=== PATIENT | female | born 1990 | race Caucasian/White ===

== ENCOUNTER 2017-12-28 15:43 | Emergency (ER) | payer OTHER ==
[2017-12-28] MEDS: SOD CHLORIDE 0.9% 1,000 ML IV (16:53)
== END 2017-12-28 19:06 | disposition home or self-care (01) ==
LOC: E/R 15:43
DX: O99.351 Diseases of the nervous system complicating pregnancy, first trimester (principal); G51.0 Bell's palsy; R51 Headache; Z3A.15 15 weeks gestation of pregnancy
CPT/HCPCS: 70544; 70551; 99285-25

== ENCOUNTER 2018-01-10 18:35 | Emergency (ER) | payer OTHER ==
[2018-01-10 21:10] LABS: ADD UMIC NO; UR AMORPHOUS CRYSTAL FEW /HPF (NONE SEEN); UR ASCORBIC ACID 20 mg/dL (NEGATIVE); UR BACTERIA FEW /HPF (NONE SEEN); UR BILIRUBIN (Dip) NEGATIVE (NEGATIVE); UR BLOOD (Dip) NEGATIVE (NEGATIVE); UR CLARITY SLIGHTLY CLOUDY (CLEAR); UR COLOR YELLOW (YELLOW); UR GLUCOSE (Dip) NEGATIVE (NEGATIVE); UR KETONES (Dip) NEGATIVE (NEGATIVE); UR LEUKOCYTE ESTERASE (Dip) NEGATIVE Leu/ul (NEGATIVE); UR NITRITE (Dip) NEGATIVE (NEGATIVE); UR RBC 1 /HPF (0-5); UR SPECIFIC GRAVITY (Dip) 1.018 (1.003-1.030); UR SQUAMOUS EPITHELIAL CELL MODERATE /HPF (FEW); UR TOTAL PROTEIN (Dip) NEGATIVE (NEGATIVE); UR UROBILINOGEN (Dip) NEGATIVE (NEGATIVE); UR WBC 3 /HPF (0-5)
[2018-01-10 21:18] LABS: ADD MAN DIFF? NO
[2018-01-10 21:20] LABS: WHITE BLOOD COUNT 10.8 10^3/ul (4.8-10.8)
[2018-01-10 21:20] LABS: BASOPHILS % 0.2 % (0.0-2.0); EOSINOPHILS # 0.1 10^3/ul (0.0-0.5); EOSINOPHILS % 1.3 % (0.0-7.0); HEMATOCRIT 35.8 % (37.0-47.0); HEMOGLOBIN 11.9 g/dl (12.0-16.0); LYMPHOCYTES # 2.2 10^3/ul (0.8-2.9); LYMPHOCYTES % 19.9 % (15.0-51.0); MEAN CORPUSCULAR HEMOGLOBIN 31.6 pg (29.0-33.0); MEAN CORPUSCULAR HGB CONC 33.2 g/dl (32.0-37.0); MEAN PLATELET VOLUME 9.8 fl (7.4-10.4); MONOCYTE # 0.6 10^3/ul (0.3-0.9); MONOCYTES % 5.7 % (0.0-11.0); NEUTROPHIL # 7.8 10^3/ul (1.6-7.5); NEUTROPHILS % 72.3 % (39.0-77.0); PLATELET COUNT 209 10^3/UL (140-415); RED BLOOD COUNT 3.77 10^6/ul (4.20-5.40); RED CELL DISTRIBUTION WIDTH 14.1 % (11.5-14.5)
== END 2018-01-10 22:38 | disposition home or self-care (01) ==
LOC: FTE 18:35
DX: O26.892 Other specified pregnancy related conditions, second trimester (principal); R10.2 Pelvic and perineal pain; Z3A.17 17 weeks gestation of pregnancy
CPT/HCPCS: 36415; 76805; 81001; 81003; 84702; 85025; 86900; 86901; 99284-25

== ENCOUNTER 2018-06-10 08:54 | Inpatient (IN) | payer BC ==
[2018-06-10 10:28] LABS: ADD MAN DIFF? NO
[2018-06-10 10:30] LABS: BASOPHILS % 0.3 % (0.0-2.0); EOSINOPHILS % 0.3 % (0.0-7.0); HEMATOCRIT 40.2 % (37.0-47.0); HEMOGLOBIN 13.3 g/dl (12.0-16.0); LYMPHOCYTES # 1.3 10^3/ul (0.8-2.9); LYMPHOCYTES % 18.8 % (15.0-51.0); MEAN CORPUSCULAR HEMOGLOBIN 31.7 pg (29.0-33.0); MEAN CORPUSCULAR HGB CONC 33.1 g/dl (32.0-37.0); MEAN CORPUSCULAR VOLUME 95.7 fl (82.0-101.0); MEAN PLATELET VOLUME 11.6 fl (7.4-10.4); MONOCYTE # 0.4 10^3/ul (0.3-0.9); NEUTROPHIL # 4.9 10^3/ul (1.6-7.5); NEUTROPHILS % 74.1 % (39.0-77.0); PLATELET COUNT 161 10^3/UL (140-415); RED CELL DISTRIBUTION WIDTH 13.2 % (11.5-14.5)
[2018-06-10 10:30] LABS: WHITE BLOOD COUNT 6.6 10^3/ul (4.8-10.8)
[2018-06-10 10:51] LABS: ALANINE AMINOTRANSFERASE 179 IU/L (13-69); ALBUMIN 3.8 g/dl (3.3-4.9); ALBUMIN/GLOBULIN RATIO 1.31; ALKALINE PHOSPHATASE 257 IU/L (42-121); ANION GAP 12 (5-13); ASPARTATE AMINO TRANSFERASE 162 IU/L (15-46); BILIRUBIN,INDIRECT 0.2 mg/dl (0-1.1); BILIRUBIN,TOTAL 0.2 mg/dl (0.2-1.3); BLOOD UREA NITROGEN 17 mg/dl (7-20); CALCIUM 9.1 mg/dl (8.4-10.2); CARBON DIOXIDE 18 mmol/L (21-31); CHLORIDE 109 mmol/L (97-110); CREATININE 0.88 mg/dl (0.44-1.00); Estimated GFR > 60 mL/min (>60); GLUCOSE 68 mg/dl (70-220); POTASSIUM 4.2 mmol/L (3.5-5.1); SODIUM 139 mmol/L (135-144); TOTAL PROTEIN 6.7 g/dl (6.1-8.1)
[2018-06-10 10:57] LABS: INR 0.91; PROTIME 12.3 Sec (11.9-14.9)
[2018-06-10 11:49] LABS: HEPATITIS B SURFACE ANTIGEN NEGATIVE (NEGATIVE)
[2018-06-10] MEDS ORDERED: OXYTOCIN 30 UNITS/LR 500 ML IV (13:30)
[2018-06-10] MEDS ORDERED: CARBOPROST 250 MCG INJ IM (13:30)
[2018-06-10] MEDS ORDERED: MISOPROSTOL 200 MCG TAB PR (13:30)
[2018-06-10 15:17] LABS: RAPID PLASMA REAGIN NONREACTIVE (NR)
[2018-06-10] MEDS: LACTATED RINGER'S 1,000 ML IV ×2 (15:55→18:52)
[2018-06-10] MEDS: CEFAZOLIN 2 GM/50 ML (PMX) 50 ML IVPB (22:48)
[2018-06-10] MEDS ORDERED: PHENYLephrine (100 MCG/ML) 5ML SYG ×2 (22:59→23:55)
[2018-06-10] MEDS ORDERED: ONDANSETRON 4 MG INJ (22:59)
[2018-06-10] MEDS ORDERED: morphine SULFATE/PF (10 MG/10 ML) INJ (23:00)
[2018-06-10] MEDS ORDERED: OXYTOCIN 10 UNIT INJ ×2 (23:00→23:44)
[2018-06-10] MEDS ORDERED: PHENYLephrine 10 MG INJ (23:53)
[2018-06-11] MEDS ORDERED: morphine 2 MG INJ IV (01:00)
[2018-06-11] MEDS ORDERED: ONDANSETRON 4 MG INJ IV (01:00)
[2018-06-11] MEDS ORDERED: NALOXONE (0.4 MG/ML) INJ IV (01:00)
[2018-06-11] MEDS: OXYTOCIN 30 UNITS/LR 500 ML IV ×3 (01:43→02:57)
[2018-06-11] MEDS: METHYLERGONOVINE 0.2 MG INJ IM (01:48)
[2018-06-11] MEDS: DIPHENHYDRAMINE 50 MG INJ IV ×2 (02:06→12:50)
[2018-06-11] MEDS ORDERED: DEXTROSE 5%-LR 1,000 ML IV ×2 (02:57→02:58)
[2018-06-11] MEDS ORDERED: OXYTOCIN 30 UNITS/LR 500 ML IV ×3 (02:58→03:00)
[2018-06-11] MEDS ORDERED: CARBOPROST 250 MCG INJ IM ×3 (03:00→06:00)
[2018-06-11] MEDS ORDERED: METHYLERGONOVINE 0.2 MG INJ IM ×2 (03:00)
[2018-06-11] MEDS ORDERED: METHYLERGONOVINE 0.2 MG TAB PO ×3 (03:00→06:00)
[2018-06-11] MEDS ORDERED: MAGNESIUM HYDROXIDE 30ML CUP PO (03:00)
[2018-06-11] MEDS ORDERED: MISOPROSTOL 200 MCG TAB PR ×3 (03:00→06:00)
[2018-06-11] MEDS ORDERED: LANOLIN 7 GM TUBE TOP ×3 (03:00→06:00)
[2018-06-11] MEDS: KETOROLAC 30 MG INJ IV ×2 (03:08→22:48)
[2018-06-11] MEDS ORDERED: IBUPROFEN 800 MG TAB PO ×3 (06:00)
[2018-06-11] MEDS ORDERED: SENNA/DOCUSATE NA (8.6MG/50MG) TAB PO ×2 (09:00)
[2018-06-11] MEDS: SENNA/DOCUSATE NA (8.6MG/50MG) TAB PO ×2 (09:37→21:00)
[2018-06-11] MEDS: DEXTROSE 5%-LR 1,000 ML IV ×2 (12:50→13:51)
[2018-06-11] MEDS: IBUPROFEN 800 MG TAB PO (23:00)
[2018-06-12] MEDS: IBUPROFEN 800 MG TAB PO ×3 (07:02→21:39)
[2018-06-12 07:28] LABS: ADD MAN DIFF? NO
[2018-06-12 07:32] LABS: BASOPHILS % 0.2 % (0.0-2.0); EOSINOPHILS # 0.1 10^3/ul (0.0-0.5); EOSINOPHILS % 1.1 % (0.0-7.0); HEMATOCRIT 36.2 % (37.0-47.0); HEMOGLOBIN 11.7 g/dl (12.0-16.0); LYMPHOCYTES # 1.7 10^3/ul (0.8-2.9); LYMPHOCYTES % 17.7 % (15.0-51.0); MEAN CORPUSCULAR HEMOGLOBIN 31.2 pg (29.0-33.0); MEAN CORPUSCULAR HGB CONC 32.3 g/dl (32.0-37.0); MEAN CORPUSCULAR VOLUME 96.5 fl (82.0-101.0); MEAN PLATELET VOLUME 11.3 fl (7.4-10.4); MONOCYTE # 0.9 10^3/ul (0.3-0.9); MONOCYTES % 8.9 % (0.0-11.0); NEUTROPHILS % 71.8 % (39.0-77.0); PLATELET COUNT 136 10^3/UL (140-415); RED BLOOD COUNT 3.75 10^6/ul (4.20-5.40); RED CELL DISTRIBUTION WIDTH 13.3 % (11.5-14.5)
[2018-06-12 07:32] LABS: WHITE BLOOD COUNT 9.8 10^3/ul (4.8-10.8)
[2018-06-12 07:39] LABS: POSITIVE DIFF @See below
[2018-06-12] MEDS: SENNA/DOCUSATE NA (8.6MG/50MG) TAB PO ×2 (10:44→21:37)
[2018-06-12] MEDS ORDERED: HYDROCODONE/APAP (5/325) TAB NGT ×3 (11:00)
[2018-06-12] MEDS ORDERED: DIPHTH/TET/ACEL PERTUSS (ADULT) 0.5 ML VIAL IM* (11:00)
[2018-06-12] MEDS: HYDROCODONE/APAP (5/325) TAB GTB ×2 (13:22→21:38)
[2018-06-12] MEDS ORDERED: HYDROCODONE/APAP (5/325) TAB GTB ×2 (14:00)
[2018-06-13] MEDS: DIPHENHYDRAMINE 2%/ZINC 28.4 GM CR TOP ×2 (00:25→06:13)
[2018-06-13] MEDS: IBUPROFEN 800 MG TAB PO (06:07)
[2018-06-13] MEDS: HYDROCODONE/APAP (5/325) TAB GTB (06:07)
[2018-06-13] MEDS: SENNA/DOCUSATE NA (8.6MG/50MG) TAB PO (09:30)
[2018-06-14] MEDS ORDERED: DIPHTH/TET/ACEL PERTUSS (ADULT) 0.5 ML VIAL IM* (09:00)
[2018-06-14] MEDS ORDERED: MEASLES,MUMPS,RUBELLA VACCINE INJ SC* (09:00)
[2018-06-14 17:36] LABS: CHENODEOXYCHOLIC ACID 0.5 umol/L (< OR = 3.1); CHOLIC ACID 1.5 umol/L (< OR = 1.8); DEOXYCHOLIC ACID 0.7 umol/L (< OR = 2.4); TOTAL BILE ACIDS 2.7 umol/L (< OR = 6.8)
== END 2018-06-13 14:45 | disposition home or self-care (01) | DRG 783 ==
LOC: OBT 08:54 → L-D 06-11 01:04 → PP1 06-11 04:18 → OBT 12:31 → L-D 12:30
PROC: 10D00Z1 Extraction of Products of Conception, Low, Open Approach (ICD-10-PCS; principal; 2018-06-10 21:15)
PROC: 0UL70ZZ Occlusion of Bilateral Fallopian Tubes, Open Approach (ICD-10-PCS; 2018-06-10 21:15)
PROC: 3E033VJ Introduction of Other Hormone into Peripheral Vein, Percutaneous Approach (ICD-10-PCS; 2018-06-10 21:15)
DX: O34.211 Maternal care for low transverse scar from previous cesarean delivery (principal); K83.1 Obstruction of bile duct; O26.62 Liver and biliary tract disorders in childbirth; Z3A.38 38 weeks gestation of pregnancy; Z37.0 Single live birth; Z30.2 Encounter for sterilization
CPT/HCPCS: 76818; 80053; 80076; 83789; 85025; 85610; 85730; 86592; 86850; 86900; 86901; 87340; 88302; 90686; 99464

== ENCOUNTER 2018-06-15 12:11 | Emergency (ER) | payer BC | END 2018-06-15 12:56 | disposition home or self-care (01) | LOC: FTE 12:11 | DX: O99.89 Other specified diseases and conditions complicating pregnancy, childbirth and the puerperium (principal); R21 Rash and other nonspecific skin eruption | CPT/HCPCS: 99282; Z7502 ==

== ENCOUNTER 2018-07-26 02:39 | Emergency (ER) | payer OTHER, BC ==
[2018-07-26] MEDS: KETOROLAC 30 MG INJ IM (03:41)
== END 2018-07-26 04:40 | disposition home or self-care (01) ==
LOC: FTE 02:39
DX: N64.4 Mastodynia (principal); K59.00 Constipation, unspecified
CPT/HCPCS: 96372; 99284-25

== ENCOUNTER 2018-08-31 06:43 | Emergency (ER) | payer BC, OTHER | END 2018-08-31 07:51 | disposition home or self-care (01) | LOC: FTE 06:43 | DX: F41.9 Anxiety disorder, unspecified (principal) | CPT/HCPCS: 99283 ==

== ENCOUNTER 2019-03-22 17:21 | Emergency (ER) | payer BC ==
[2019-03-22 18:51] LABS: URINE BLOOD (Dip) POC Negative (NEGATIVE); URINE GLUCOSE (Dip) POC Negative (NEGATIVE); URINE KETONES (Dip) POC Negative (NEGATIVE); URINE LEUKOCYTE EST (Dip) POC Negative (NEGATIVE); URINE NITRITE (Dip) POC Negative (NEGATIVE); URINE TOTAL PROTEIN POC Negative (NEGATIVE)
[2019-03-22] MEDS: HYDROCODONE/APAP (10/325) TAB PO (18:52)
== END 2019-03-22 19:25 | disposition home or self-care (01) ==
LOC: FTE 17:21
DX: G43.019 Migraine without aura, intractable, without status migrainosus (principal)
CPT/HCPCS: 81003; 81025; 99283

== ENCOUNTER 2019-03-25 16:10 | Emergency (ER) | payer BC ==
[2019-03-25] MEDS: KETOROLAC 30 MG INJ IV (17:31)
[2019-03-25] MEDS: METOCLOPRAMIDE 10 MG INJ IV (17:31)
[2019-03-25] MEDS: SOD CHLORIDE 0.9% 1,000 ML IV (17:32)
== END 2019-03-25 18:28 | disposition home or self-care (01) ==
LOC: FTE 16:10
DX: G43.909 Migraine, unspecified, not intractable, without status migrainosus (principal)
CPT/HCPCS: 81025; 96374; 96375; 99284-25